=== PATIENT | male | born 1935 | race Caucasian/White ===

== ENCOUNTER 2016-10-01 19:43 | Emergency (ER) | payer OTHER ==
[2016-10-01 20:09] VITALS: TEMP 98.4; O2SAT 92
[2016-10-01 20:31] LABS: % IMMATURE GRANULYOCYTES 0.6 % (0.0-1.1); ABSOLUTE IMMATURE GRANULOCYTES 0.12 10^3/uL (0.00-0.10); ADD DIFF? NO; ADD MORPH? NO; ADD SCAN? NO; ATYPICAL LYMPHOCYTE FLAG 10 (0-99); FRAGMENT RBC FLAG 0 (0-99); HEMATOCRIT 40.4 % (40.0-51.0); HEMOGLOBIN 13.2 g/dL (13.7-17.5); LEFT SHIFT FLG 0 (0-99); LIPEMIA HEMOLYSIS FLAG 80 (0-99); MEAN CELL HEMOGLOBIN CONCENTR. 32.7 g/dL (32.4-36.7); MEAN PLATELET VOLUME 9.8 fL (8.7-11.7); PLATELET CLUMPS FLAG 10 (0-99); PLATELET COUNT 269 10^3/uL (150-400); RED CELL DISTRIBUTION WIDTH 13.3 % (11.5-15.2)
[2016-10-01 20:34] LABS: COLOR YELLOW; LEUKOCYTE ESTERASE,URINE NEGATIVE (NEGATIVE); NITRITE,URINE NEGATIVE (NEGATIVE)
[2016-10-01 20:37] LABS: ALANINE AMINOTRANSFERASE 42 IU/L (21-72); ALBUMIN 3.5 g/dL (3.5-5.0); ALKALINE PHOSPHATASE 83 IU/L (38-126); ANION GAP 11 mEq/L (8-16); ASPARTATE AMINOTRANSFERASE 22 IU/L (17-59); BILIRUBIN,TOTAL 0.7 mg/dL (0.1-1.4); BILIRUBIN-CONJUGATED 0.4 mg/dL (0.0-0.5); BILIRUBIN-UNCONJUGATED 0.3 mg/dL (0.0-1.1); CARBON DIOXIDE 28 mEq/l (22-31); CHLORIDE 99 mEq/L (97-110); CREATININE 1.1 mg/dL (0.7-1.3); GLOMERULAR FILTRATION RATE > 60; GLUCOSE 79 mg/dL (70-100); POTASSIUM 3.8 mEq/L (3.5-5.2); SODIUM 138 mEq/L (134-144); TOTAL PROTEIN 5.9 g/dL (6.3-8.2)
[2016-10-01 20:48] LABS: TROPONIN I 0.013 ng/mL (0-0.034)
--- NOTE | 2016-10-01 21:42 | CPEKG ---
Heart Rate: 68 RR Interval: 882 P-R Interval: 180 QRSD Interval: 86 QT Interval: 408 QTC Interval: 434 P [place]: 77 QRS [place]: 58 T Wave [place]: 83 EKG Severity - BORDERLINE ECG - EKG Impression: SINUS RHYTHM EKG Impression: LOW VOLTAGE IN FRONTAL LEADS EKG Impression: BORDERLINE R WAVE PROGRESSION, ANTERIOR LEADS Electronically Signed By: Andre Gordon 01-Oct-2016 22:43:33
--- NOTE | 2016-10-01 21:56 | EDPHY ---
H & P Stated Complaint: increased weakness, cough, painful urination Time Seen by Provider: 10/01/16 19:48 HPI/ROS: Chief complaint: Fatigue, cough HPI: 80-year-old male from [facility] in rehab for a right hip replacement 3 weeks ago. Patient has been having a cough for the last week, increasing urination. Reportedly dropped his oxygen saturations in the retirement. Had a chest x-ray today which was reported as negative. retirement reported a blood pressure in the high 80s today. Son asked that the patient be transferred to the hospital for further evaluation. On EMS arrival patient the patient was not hypotensive. He has a past medical history of COPD and a CABG in 2010. Denies any fevers or chills. Has had a mildly productive cough. No nausea or vomiting. No abdominal pain. No skin rash. No redness or discharge from the surgical site. Has had some increasing urination. ROS: 10 point Review of Systems is negative except as noted in the HPI. Past medical history: Coronary artery bypass graft in 2011 Coronary artery disease COPD Allergies: Penicillin Physical exam: Gen: Awake, Alert, No Distress HEENT: Nose: no rhinorrhea Eyes: PERRLA, EOMI Mouth: Moist mucosa Neck: Supple, no JVD Chest: nontender, lungs clear to auscultation Heart: S1, S2 normal, no murmur Abd: Soft, non-tender, no guarding Back: no CVA tenderness, no midline tenderness Ext: no edema, non-tender Skin: no rash Neuro: CN II-XII intact, Sensation grossly intact, Strength 5/5 in bilateral upper and lower extremities - Personal History Current Tetanus Diphtheria and Acellular Pertussis (TDAP): Unsure - Medical/Surgical History Hx Asthma: No Hx Chronic Respiratory Disease: Yes Hx Diabetes: No Hx Cardiac Disease: Yes Hx Renal Disease: No Hx Cirrhosis: No Hx Alcoholism: No Hx HIV/AIDS: No Hx Splenectomy or Spleen Trauma: No Other PMH: hypertension, COPD, atherosclerotic heart disease of [place] coronary artery without angina pectoris, hyperlidimia, hearing loss, right artificial knee join, osteoarthritis, right hip replacement Constitutional: Initial Vital Signs Temperature (C) 36.9 C 10/01/16 20:04 Heart Rate 71 10/01/16 20:04 Respiratory Rate 22 H 10/01/16 20:04 Blood Pressure 117/58 L 10/01/16 20:04 O2 Sat (%) 92 10/01/16 20:04 O2 Delivery Mode Room Air Allergies/Adverse Reactions: Penicillins Allergy (Verified 10/01/16 19:55) dozier beans Allergy (Uncoded 10/01/16 19:55) Home Medications: Medication Instructions Recorded Aspirin 325 mg (*) 10/01/16 CeleXA 20 MG 10/01/16 Colace 100 MG (*) 10/01/16 Duoneb (*) 10/01/16 Klor-Con 10/01/16 Lasix 10/01/16 Lipitor 10/01/16 Lisinopril 10/01/16 Metoprolol Tartrate 10/01/16 NIACIN 10/01/16 [place] 10-325 Tablet 10/01/16 Proair Hfa Icu (*) 10/01/16 Proscar 5 MG (*) 10/01/16 Robitussin 10/01/16 Singulair 10/01/16 Tylenol 325mg (*) 10/01/16 Medical Decision Making - Diagnostics Imaging: Chest x-ray: Interpreted by Dr. Dexter Stratton. Favor left basilar atelectasis rather than pneumonia superimposed on bronchitis. ED Course/Re-evaluation: Patient presenting with fatigue and cough and urinary symptoms. Will check chest x-ray, bloods and urinalysis and reassess. He is not hypotensive here he is not tachycardic here he is mildly hypoxic with an oxygen saturation at 91% on room air. He is otherwise without complaint. He is afebrile. Patient has a leukocytosis of 21 here. He has findings on his chest x-ray suggestive of bronchitis with a possible left lower lobe infiltrate. He has not have any other source of infection. Urinalysis is negative. His chemistries otherwise normal. I will start him on azithromycin for pneumonia with possible COPD exacerbation. He is not wheezing here. Is otherwise without complaint. Will discharge him back to [facility] for further evaluation by his doctors there. - Data Points Laboratory Results: Laboratory Results 10/01/16 19:50 10/01/16 19:50 10/01/16 10/01/16 10/01/16 20:30 20:15 19:50 WBC RBC Hgb Hct MCV MCH MCHC RDW Plt Count MPV Neut % (Auto) Lymph % (Auto) Gem % (Auto) Eos % (Auto) Baso % (Auto) Nucleat RBC Rel Count Absolute Neuts (auto) Absolute Lymphs (auto) Absolute Monos (auto) Absolute Eos (auto) Absolute Basos (auto) Absolute Nucleated RBC Immature Gran % Immature Gran # Sodium 138 mEq/L mEq/L (134-144) Potassium 3.8 mEq/L mEq/L (3.5-5.2) Chloride 99 mEq/L mEq/L (97-110) Carbon Dioxide 28 mEq/l mEq/l (22-31) Anion Gap 11 mEq/L mEq/L (8-16) BUN 25 mg/dL H mg/dL (7-23) Creatinine 1.1 mg/dL mg/dL (0.7-1.3) Estimated GFR > 60 Glucose 79 mg/dL mg/dL (70-100) Calcium 9.0 mg/dL mg/dL (8.5-10.4) Total Bilirubin 0.7 mg/dL mg/dL (0.1-1.4) Conjugated Bilirubin 0.4 mg/dL mg/dL (0.0-0.5) Unconjugated Bilirubin 0.3 mg/dL mg/dL (0.0-1.1) AST 22 IU/L IU/L (17-59) ALT 42 IU/L IU/L (21-72) Alkaline Phosphatase 83 IU/L IU/L (38-126) Troponin I 0.013 ng/mL ng/mL (0-0.034) Total Protein 5.9 g/dL L g/dL (6.3-8.2) Albumin 3.5 g/dL g/dL (3.5-5.0) Lipase 313.0 IU/L H IU/L (23-300) Urine Color YELLOW Urine Appearance CLEAR Urine pH 5.0 (5.0-7.5) Ur Specific [place] 1.018 (1.002-1.030) Urine Protein NEGATIVE (NEGATIVE) Urine Ketones NEGATIVE (NEGATIVE) Urine Blood NEGATIVE (NEGATIVE) Urine Nitrate NEGATIVE (NEGATIVE) Urine Bilirubin NEGATIVE (NEGATIVE) Urine Urobilinogen NEGATIVE EU EU (0.2-1.0) Ur Leukocyte Esterase NEGATIVE (NEGATIVE) Urine Glucose NEGATIVE (NEGATIVE) Influenza Typ A,B (DFA) NEGATIVE FOR FLU (NEGATIVE) 03/11/17 19:50 WBC 21.06 10^3/uL H 10^3/uL (3.80-9.50) RBC 4.00 10^6/uL L 10^6/uL (4.40-6.38) Hgb 13.2 g/dL L g/dL (13.7-17.5) Hct 40.4 % % (40.0-51.0) MCV 101.0 fL H fL (81.5-99.8) MCH 33.0 pg pg (27.9-34.1) MCHC 32.7 g/dL g/dL (32.4-36.7) RDW 13.3 % % (11.5-15.2) Plt Count 269 10^3/uL 10^3/uL (150-400) MPV 9.8 fL fL (8.7-11.7) Neut % (Auto) 88.3 % H % (39.3-74.2) Lymph % (Auto) 4.8 % L % (15.0-45.0) Gem % (Auto) 6.0 % % (4.5-13.0) Eos % (Auto) 0.1 % L % (0.6-7.6) Baso % (Auto) 0.2 % L % (0.3-1.7) Nucleat RBC Rel Count 0.0 % % (0.0-0.2) Absolute Neuts (auto) 18.60 10^3/uL H 10^3/uL (1.70-6.50) Absolute Lymphs (auto) 1.01 10^3/uL 10^3/uL (1.00-3.00) Absolute Monos (auto) 1.26 10^3/uL H 10^3/uL (0.30-0.80) Absolute Eos (auto) 0.03 10^3/uL 10^3/uL (0.03-0.40) Absolute Basos (auto) 0.04 10^3/uL 10^3/uL (0.02-0.10) Absolute Nucleated RBC 0.00 10^3/uL 10^3/uL (0-0.01) Immature Gran % 0.6 % % (0.0-1.1) Immature Gran # 0.12 10^3/uL H 10^3/uL (0.00-0.10) Sodium Potassium Chloride Carbon Dioxide Anion Gap BUN Creatinine Estimated GFR Glucose Calcium Total Bilirubin Conjugated Bilirubin Unconjugated Bilirubin AST ALT Alkaline Phosphatase Troponin I Total Protein Albumin Lipase Urine Color Urine Appearance Urine pH Ur Specific [place] Urine Protein Urine Ketones Urine Blood Urine Nitrate Urine Bilirubin Urine Urobilinogen Ur Leukocyte Esterase Urine Glucose Influenza Typ A,B (DFA) Departure - Departure Disposition: Home, Routine, Self-Care Clinical Impression: Bronchitis Condition: Good Instructions: COPD (Chronic Obstructive Pulmonary Disease) (ED), Acute Bronchitis (ED) Additional Instructions: Take your full course of antibiotics. Follow up with your doctor in 2 days. Return emergency department for increasing fevers, chills, cough, shortness of breath, pain, confusion, or any other concerns. Referrals: WALKER DELGADO [Other] - As per Instructions
[2016-10-01] MEDS ORDERED: AZITHROMYCIN 250 MG TAB PO ONE (22:00)
[2016-10-01 22:51] VITALS: BP 114/57; PULSE 72; RESP 16
== END 2016-10-01 22:42 | disposition home or self-care (01) ==
DX: J44.0 Chronic obstructive pulmonary disease with (acute) lower respiratory infection (principal); I25.810 Atherosclerosis of coronary artery bypass graft(s) without angina pectoris; I10 Essential (primary) hypertension; Z79.82 Long term (current) use of aspirin